=== PATIENT | female | born 1995 | race Caucasian/White ===

== ENCOUNTER 2017-01-01 15:50 | Emergency (ER) | payer BC, OTHER ==
[~2017-01-01] VITALS: Ht 162.6 cm; Wt 113.4 kg
[2017-01-01] MEDS ORDERED: OXYC1TAB23 PO (16:23)
[2017-01-01] MEDS ORDERED: VELIPAK2 PO (16:23)
[2017-01-01] MEDS ORDERED: FLOM5CAP PO ×3 (16:23→19:43)
[2017-01-01] MEDS ORDERED: ONDANSETRON 4MG/2ML VIAL (J2405) IV ONE (17:00)
[2017-01-01] MEDS ORDERED: KETOROLAC 30 MG/ML VIAL (J1885) IV ONE (17:00)
[2017-01-01 17:33] LABS: BASO % 0.2 % (0.0-1.0); EOS # 0.1 K/mm3 (0.0-0.50); EOS % 1.2 % (0.0-3.0); LARGE UNSTAINED CELL # 0.1 K/mm3 (0.0-0.4); LARGE UNSTAINED CELL % 1.3 % (0.0-4.0); LYMPH # 1.7 K/mm3 (1.5-6.5); LYMPH % 15.9 % (24.0-44.0); MEAN CORPUSCULAR HEMOGLOBIN 27.1 pg (27.0-33.0); MEAN CORPUSCULAR HGB CONC 33.4 g/dl (32.0-36.5); MONO # 0.5 K/mm3 (0.0-0.8); MONO % 5.1 % (0.0-5.0); NEUTROPHILS # 7.9 K/mm3 (1.8-7.7); NEUTROPHILS % 76.3 % (36.0-66.0); PLATELET COUNT, AUTOMATED 311 k/mm3 (150-450); RED CELL DISTRIBUTION WIDTH 13.5 % (11.5-14.5); WHITE BLOOD COUNT 10.4 K/mm3 (4.0-10.0)
[2017-01-01 17:47] LABS: CONTROL LINE HCG INT CTR LINE PRESENT
[2017-01-01 17:49] LABS: ANION GAP 7 MEQ/L (8-16); BLOOD UREA NITROGEN 11 MG/DL (7-18); CALCIUM LEVEL 8.7 MG/DL (8.5-10.1); CARBON DIOXIDE LEVEL 25 MEQ/L (21-32); CHLORIDE LEVEL 107 MEQ/L (98-107); CREATININE FOR GFR 0.78 MG/DL (0.55-1.02); GLOMERULAR FILTRATION RATE > 60.0 (>60); GLUCOSE, FASTING 110 MG/DL (70-105); POTASSIUM SERUM 3.5 MEQ/L (3.5-5.1); SODIUM LEVEL 139 MEQ/L (136-145)
[2017-01-01 18:51] VITALS: BP 181/90
--- NOTE | 2017-01-01 19:20 | REPUSA ---
CLINICAL HISTORY: Hematuria. Left flank pain. TECHNIQUE: Multiple axial CT images were obtained through the abdomen and pelvis without administrat ion of oral or IV contrast material. FINDINGS: Correlation is made with the prior study dated 03/24/2016. The liver is enlarged measuring 19 cm. No evidence of hepatic mass. There is hepatic hypoattenuation compatible with fatty infiltration. Small hiatal hernia is seen. There is no intra or extrahepatic bi liary ductal dilatation. The spleen is normal. The gallbladder is within normal limits. The pancre as is of normal contour and attenuation characteristics. There is no evidence of adrenal mass. The kidneys are normal in size, shape and configuration. There is a punctate calculus noted in the rivera perior pole of the left kidney. There is a 3.5 mm calculus noted in the proximal left ureter producin g mild hydroureter and hydronephrosis. There is no evidence for appendicitis. There is no bowel wall thickening. No evidence for small or large bowel obstruction. There is no evidence of abdominal ascites or lymphadenopathy. There is no evidence of intrinsic or extrinsic bladder mass. There is no pelvic ascites or lymphaden opathy. Uterus and ovaries are unremarkable. Images of the lung bases show no evidence of pleural or parenchymal mass. There are no pleural effus ions. The bony structures are free of lytic or blastic lesions. IMPRESSION: 1. Fatty liver. 2. A 3.5 mm calculus in the proximal left ureter producing mild hydroureter and hydronephrosis. 3. Punctate nonobstructing left renal calculus. Thank you for your kind referral of this patient. We appreciate the opportunity to participate in thi s patient's care.
[2017-01-01] MEDS ORDERED: NAPR500T PO ×2 (19:33→19:43)
[2017-01-01] MEDS ORDERED: NORCOTAB PO ×2 (19:33→19:43)
[2017-01-01] MEDS ORDERED: ZOFR4TAB3 PO ×2 (19:33→19:43)
== END 2017-01-01 19:51 | disposition home or self-care (01) ==
LOC: M ED 17:32
DX: N13.2 Hydronephrosis with renal and ureteral calculous obstruction (principal)
CPT/HCPCS: 74176; 80048; 84703; 85025; 86140; 96374; 96375; 99284; J1885; J2405

== ENCOUNTER → 2017-01-01 | Outpatient (REF) | payer BC, OTHER ==
[~2017-01-01] MED LIST: FLOM5CAP PO; NAPR500T PO; NORCOTAB PO; OXYC1TAB23 PO; VELIPAK2 PO; ZOFR4TAB3 PO
[2017-01-01 17:29] LABS: CONTROL LINE UCG INT CTR LINE PRESENT
== END ==
LOC: M SMT 16:57
PROVIDERS: ATTEND Urology
DX: R10.9 Unspecified abdominal pain (principal)

== ENCOUNTER → 2017-01-28 | Outpatient (REF) | payer OTHER ==
[~2017-01-28] MED LIST changes: +IBUP80TA PO
== END ==
LOC: M SMT 17:14
PROVIDERS: ATTEND Urology
DX: N20.0 Calculus of kidney (principal)

== ENCOUNTER → 2017-02-09 | Outpatient (CLI) | payer OTHER ==
--- NOTE | 2017-02-09 21:46 | REP ---
Clinical: Nephrolithiasis. Comparison: CT dated 01/01/2017. Technique: Single supine view of the abdomen and pelvis. Findings: Single supine view of the abdomen and pelvis demonstrates nonspecific bowel gas pattern. Evaluation of the urinary tract system for calcifications is limited although small 1 mm left renal calculus cannot be excluded. Calcifications in the right karen pelvis likely phleboliths. Skeletal structures are intact. Impression: Limited evaluation for urinary tract calcifications. Possible 1 mm nonobstructing left renal calculus. Signed by Reed Mazariegos MD 02/09/2017 09:37 P
== END ==
LOC: M RAD 15:54
PROVIDERS: ATTEND Urology
DX: N20.0 Calculus of kidney (principal)

== ENCOUNTER → 2017-02-16 | Outpatient (REF) | payer OTHER ==
[2017-02-16 14:02] LABS: CALCIUM OXALATE CRYSTALS SMALL
== END ==
LOC: M SMT 12:57
PROVIDERS: ATTEND Urology
DX: N20.0 Calculus of kidney (principal)

== ENCOUNTER 2017-05-04 12:26 | Emergency (ER) | payer OTHER ==
[~2017-05-04] VITALS: Ht 160 cm; Wt 118.2 kg
[~2017-05-04 12:26] MED LIST changes: -IBUP80TA PO
[2017-05-04] MEDS ORDERED: IBUP80TA PO (13:58)
[2017-05-04] MEDS ORDERED: IBUPROFEN 800 MG TAB As Ordered ONE (13:59)
[2017-05-04] MEDS ORDERED: IBUPROFEN 800 MG TAB PO ONE (14:00)
[2017-05-04 14:04] VITALS: BP 159/95
== END 2017-05-04 14:07 | disposition home or self-care (01) ==
LOC: M ED 12:26
DX: M79.5 Residual foreign body in soft tissue (principal)

== ENCOUNTER 2018-02-05 21:09 | Emergency (ER) | payer OTHER ==
[2018-02-05 23:56] LABS: CONTROL LINE HCG INT CTR LINE PRESENT; HCG, SERUM QUALITATIVE NEGATIVE (NEGATIVE)
[2018-02-06 00:09] LABS: ALBUMIN 3.7 GM/DL (3.2-5.2); ALBUMIN/GLOBULIN RATIO 0.97 (1.00-1.93); ALKALINE PHOSPHATASE 70 U/L (45-117); ALT/SGPT 34 U/L (12-78); ANION GAP 9 MEQ/L (8-16); AST/SGOT 15 U/L (7-37); BILIRUBIN,TOTAL 0.2 MG/DL (0.2-1.0); BLOOD UREA NITROGEN 11 MG/DL (7-18); CALCIUM LEVEL 9.2 MG/DL (8.5-10.1); CARBON DIOXIDE LEVEL 25 MEQ/L (21-32); CHLORIDE LEVEL 109 MEQ/L (98-107); CREATININE FOR GFR 0.73 MG/DL (0.55-1.30); GLOMERULAR FILTRATION RATE > 60.0 (>60); GLUCOSE, FASTING 82 MG/DL (70-100); POTASSIUM SERUM 4.3 MEQ/L (3.5-5.1); SODIUM LEVEL 143 MEQ/L (136-145); TOTAL PROTEIN 7.5 GM/DL (6.4-8.2)
[2018-02-06 00:15] LABS: BASO % 0.3 % (0.0-1.0); EOS # 0.1 10^3/uL (0.0-0.50); HEMATOCRIT 43.4 % (36.0-47.0); HEMOGLOBIN 14.2 g/dl (12.0-15.5); HIVEXPOSED0 NEGATIVE (NEGATIVE); IMMATURE GRANULOCYTE % 0.9 % (0-3.0); LYMPH % 15.4 % (24.0-44.0); MEAN CORPUSCULAR HEMOGLOBIN 26.7 pg (27.0-33.0); MEAN CORPUSCULAR HGB CONC 32.7 g/dl (32.0-36.5); MEAN CORPUSCULAR VOLUME 81.6 fl (80.0-96.0); MONO % 7.6 % (0.0-5.0); NEUTROPHILS # 9.6 10^3/uL (1.8-7.7); NEUTROPHILS % 74.8 % (36.0-66.0); PLATELET COUNT, AUTOMATED 359 10^3/uL (150-450); RED BLOOD COUNT 5.32 10^6/uL (4.00-5.40); WHITE BLOOD COUNT 12.8 10^3/uL (4.0-10.0)
[2018-02-06 00:17] LABS: CONTROL LINE INT CTR LINE PRESENT; HIV EXPOSED PT 1 NEGATIVE (NEGATIVE)
[2018-02-07 10:35] LABS: HEPATITIS B SURFACE ANTIBODY POSITIVE (POSITIVE)
[2018-02-07 10:43] LABS: HEPATITIS B SURFACE ANTIGEN NEGATIVE (NEGATIVE)
[2018-02-07 11:12] LABS: HEPATITIS C VIRUS ABY INDEX 0.1 INDEX (<0.8)
== END 2018-02-05 23:45 | disposition home or self-care (01) ==
LOC: M ED 21:09
DX: Z77.21 Contact with and (suspected) exposure to potentially hazardous body fluids (principal); Z88.8 Allergy status to other drugs, medicaments and biological substances
CPT/HCPCS: 80053

== ENCOUNTER → 2018-11-15 | Outpatient (CLI) | payer OTHER ==
[~2018-11-15] MED LIST changes: +FLOM0.4C39 PO; -FLOM5CAP PO; +HYDR-3715 PO; +IBUP80TA PO; +NAPR-837 PO; -NAPR500T PO; -NORCOTAB PO; +ZOFR4TAB14 PO; -ZOFR4TAB3 PO
[2018-11-15 14:03] LABS: BLOOD UREA NITROGEN 9 MG/DL (7-18); CARBON DIOXIDE LEVEL 25 MEQ/L (21-32); CHLORIDE LEVEL 107 MEQ/L (98-107); CREATININE FOR GFR 0.63 MG/DL (0.55-1.30); GLOMERULAR FILTRATION RATE > 60.0 (>60); GLUCOSE, FASTING 115 MG/DL (70-100); POTASSIUM SERUM 4.4 MEQ/L (3.5-5.1); SODIUM LEVEL 139 MEQ/L (136-145)
[2018-11-15 14:19] LABS: HEMOGLOBIN A1c 6.9 %
== END ==
LOC: M SMT 11:00
PROVIDERS: ATTEND Family Medicine
DX: I10 Essential (primary) hypertension (principal); Z83.3 Family history of diabetes mellitus

== ENCOUNTER → 2018-12-15 | Outpatient (CLI) | payer BC ==
--- NOTE | 2018-12-16 15:59 | REP ---
Clinical: thoracic pain. Technique: AP, lateral, and swimmers views. Findings: Alignment and kyphosis is maintained. Vertebral bodies intact. No acute fracture / compression injury or subluxation. Endplate sclerosis with marginal spurring and disc space narrowing at T11-12 should be correlated clinically. No further degenerative changes are appreciated. Impression: Focal degenerative changes at T11-12 cannot be excluded and should be correlated clinically. Electronically Signed by Reed Mazariegos MD 12/16/2018 03:50 P
== END ==
LOC: M ADAMS 10:00
PROVIDERS: ATTEND Physician Assistant
DX: M54.6 Pain in thoracic spine (principal)

== ENCOUNTER → 2019-06-23 | Outpatient (CLI) | payer OTHER ==
--- NOTE | 2019-06-23 12:20 | REP ---
Chest x-ray: Two views. History: Otitis . Comparison study: November 29, 2005 . Findings: The lungs are well inflated and free of infiltrate. The pleural angles are sharp. The heart size is normal. Pulmonary vasculature is not increased. No significant bony abnormality is seen. Impression: Negative chest x-ray. Electronically Signed by Brandon Aguilar MD 06/23/2019 12:12 P
[2019-06-23 13:23] LABS: BASO # 0.1 10^3/uL (0.0-0.2); BASO % 0.4 % (0.0-1.0); EOS # 0.3 10^3/uL (0.0-0.5); EOS % 2.1 % (0.0-3.0); HEMATOCRIT 43.2 % (36.0-47.0); HEMOGLOBIN 13.6 g/dl (12.0-15.5); LYMPH # 2.1 10^3/uL (1.5-5.0); LYMPH % 17.1 % (24.0-44.0); MEAN CORPUSCULAR HGB CONC 31.5 g/dl (32.0-36.5); MEAN CORPUSCULAR VOLUME 82.4 fl (80.0-96.0); MONO # 0.8 10^3/uL (0.0-0.8); MONO % 6.8 % (0.0-5.0); NEUTROPHILS # 8.9 10^3/uL (1.5-8.5); NEUTROPHILS % 72.8 % (36.0-66.0); PLATELET COUNT, AUTOMATED 395 10^3/uL (150-450); RED BLOOD COUNT 5.24 10^6/uL (4.00-5.40); WHITE BLOOD COUNT 12.3 10^3/uL (4.0-10.0)
== END ==
LOC: M ADAMS 10:05
PROVIDERS: ATTEND Physician Assistant Medical
DX: J20.9 Acute bronchitis, unspecified (principal)

== ENCOUNTER → 2019-09-25 | Outpatient (REF) | payer OTHER ==
[2019-09-25 11:41] LABS: APPEARANCE, URINE MANUAL HAZY (CLEAR); COLOR, URINE MANUAL ORANGE (YELLOW)
[2019-09-25 11:43] LABS: BILIRUBIN, URINE MANUAL OBSCURED (NEGATIVE); BLOOD URINE MANUAL OBSCURED (NEGATIVE); GLUCOSE, URINE (UA) MANUAL NEGATIVE (NEGATIVE); KETONE, URINE MANUAL OBSCURED mg/dL (NEGATIVE); LEUKOCYTE ESTERASE, URINE MAN OBSCURED (NEGATIVE); NITRITE, URINE MANUAL OBSCURED (NEGATIVE); PROTEIN, URINE MANUAL OBSCURED mg/dL (NEGATIVE); UROBILINOGEN, URINE MANUAL OBSCURED mg/dl (NORMAL)
[2019-09-25 11:52] LABS: WBC, URINE 30-40 /hpf (0-3)
[2019-09-25 11:53] LABS: RENAL EPITHELIAL CELLS, URINE SMALL AMOUNT /hpf; SQUAMOUS EPITHELIAL CELL URINE MOD AMOUNT /hpf (SMALL AMT); TRANSITIONAL EPI CELLS, URINE SMALL AMOUNT /hpf
[2019-09-25 11:54] LABS: AMORPHOUS SEDIMENT, URINE SMALL AMOUNT (NEGATIVE); BACTERIA, URINE MOD AMOUNT; HYALINE CAST, URINE NONE SEEN /lpf (0-1); MUCUS, URINE SMALL AMOUNT (NEGATIVE)
== END ==
LOC: M LAB REF 11:04
PROVIDERS: ATTEND Physician Assistant Medical
DX: N39.9 Disorder of urinary system, unspecified (principal)

== ENCOUNTER → 2020-02-19 | Outpatient (CLI) | payer OTHER ==
[2020-02-19 12:49] LABS: HEMOGLOBIN A1c 6.3 %
[2020-02-19 12:54] LABS: ALBUMIN 3.6 GM/DL (3.2-5.2); ALT/SGPT 26 U/L (12-78); BILIRUBIN,TOTAL 0.4 MG/DL (0.2-1.0); BLOOD UREA NITROGEN 11 MG/DL (7-18); CALCIUM LEVEL 9.3 MG/DL (8.5-10.1); CARBON DIOXIDE LEVEL 24 MEQ/L (21-32); CHLORIDE LEVEL 104 MEQ/L (98-107); CHOLESTEROL LEVEL 201 MG/DL (<200); CHOLESTEROL RISK RATIO 3.941 (<5); GLOMERULAR FILTRATION RATE > 60.0 (>60); GLUCOSE, FASTING 109 MG/DL (70-100); HDL CHOLESTEROL 51 MG/DL (>40); LDL CHOLESTEROL 105 MG/DL (<100); NON-HDL-C 150 MG/DL; POTASSIUM SERUM 4.3 MEQ/L (3.5-5.1); SODIUM LEVEL 135 MEQ/L (136-145); TOTAL PROTEIN 7.5 GM/DL (6.4-8.2); TRIGLYCERIDES LEVEL 224 MG/DL (<150)
[2020-02-19 13:14] LABS: MALB URINE SIEMENS 14.8 MG/L; MAU/CREAT RATIO 11.1 MCG/MG (0.0-30.0)
== END ==
LOC: M PLALAB 09:23
PROVIDERS: ATTEND Physician Assistant Medical
DX: E11.9 Type 2 diabetes mellitus without complications (principal)

== ENCOUNTER → 2020-08-28 | Outpatient (CLI) | payer OTHER ==
--- NOTE | 2020-08-29 04:02 | REP ---
INDICATION: SHORTNESS OF BREATH COMPARISON: 06/23/2019 TECHNIQUE: PA and lateral. FINDINGS: The mediastinum and cardiac silhouette are normal. The lung spencer are clear and without acute consolidation, effusion, or pneumothorax. The skeletal structures are intact and normal. IMPRESSION: No acute cardiopulmonary process. <Electronically signed by Reed Mazariegos > 08/29/20 [id number]
== END ==
LOC: M RAD 12:58
PROVIDERS: ATTEND Physician Assistant Medical
DX: R06.02 Shortness of breath (principal)

== ENCOUNTER → 2021-01-01 | Outpatient (REF) | LOC: M LABSMTC 12:44 | PROVIDERS: ATTEND Pediatrics | DX: Z20.822 Contact with and (suspected) exposure to COVID-19 (principal) ==

== ENCOUNTER → 2021-08-09 | Outpatient (CLI) | payer BC ==
[2021-08-12 16:12] LABS: Lyme Disease IgG/IgM Antibodie <0.91 ISR (0.00-0.90); Lyme Disease IgM Ab Quantitati <0.80 index (0.00-0.79)
== END ==
LOC: M LAB 11:48
PROVIDERS: ATTEND Physician Assistant
DX: M25.50 Pain in unspecified joint (principal); R00.0 Tachycardia, unspecified; R79.82 Elevated C-reactive protein (CRP); R70.0 Elevated erythrocyte sedimentation rate; R53.1 Weakness

== ENCOUNTER → 2021-10-15 | Outpatient (REF) | LOC: M EMP 09:27 | PROVIDERS: ATTEND Family Medicine | DX: Z11.52 Encounter for screening for COVID-19 (principal) ==

== ENCOUNTER 2021-10-24 14:25 | Emergency (ER) | payer BC ==
[~2021-10-24] VITALS: Ht 162.6 cm; Wt 136.4 kg
[2021-10-24] MEDS ORDERED: LISI20TA33 PO (14:45)
[2021-10-24] MEDS ORDERED: ALBU8.5H INH (14:45)
[2021-10-24] MEDS ORDERED: METF500T13 PO (14:45)
[2021-10-24] MEDS ORDERED: AMOX875T2 PO (14:45)
[2021-10-24] MEDS ORDERED: ALBUTEROL SULFATE 2.5 MG/0.5 ML INH NEB SOLN INH ONE (15:15)
[2021-10-24] MEDS ORDERED: IPRATROPIUM 0.5MG/ALBUTEROL 2.5MG INH SOL UD 3ML (DUONEB) NEB ONE (15:15)
[2021-10-24 15:38] LABS: BASO # 0.1 10^3/uL (0.0-0.2); BASO % 0.5 % (0.0-1.0); EOS # 0.1 10^3/uL (0.0-0.5); EOS % 0.7 % (0.0-3.0); HEMATOCRIT 44.5 % (36.0-47.0); HEMOGLOBIN 14.4 g/dl (12.0-15.5); LYMPH # 3.9 10^3/uL (1.5-5.0); LYMPH % 20.3 % (24.0-44.0); MEAN CORPUSCULAR HEMOGLOBIN 26.1 pg (27.0-33.0); MEAN CORPUSCULAR HGB CONC 32.4 g/dl (32.0-36.5); MEAN CORPUSCULAR VOLUME 80.8 fl (80.0-96.0); MONO # 1.1 10^3/uL (0.0-0.8); MONO % 5.7 % (2.0-8.0); NEUTROPHILS # 13.4 10^3/uL (1.5-8.5); PLATELET COUNT, AUTOMATED 390 10^3/uL (150-450); RED BLOOD COUNT 5.51 10^6/uL (4.00-5.40); WHITE BLOOD COUNT 19.1 10^3/uL (4.0-10.0)
[2021-10-24] MEDS ORDERED: NS 500 ML IV ONE ×2 (15:55→16:45)
[2021-10-24 16:12] LABS: ALBUMIN 3.3 GM/DL (3.2-5.2); ALT/SGPT 31 U/L (12-78); BILIRUBIN,DIRECT < 0.1 MG/DL (0.0-0.2); BILIRUBIN,TOTAL 0.2 MG/DL (0.2-1.0); NT-PRO BNP 22 PG/ML (<125); THYROXINE (T4) 16.8 UG/DL (4.5-12.0); TOTAL PROTEIN 7.1 GM/DL (6.4-8.2)
[2021-10-24] MEDS ORDERED: ISOVUE-370 76% 100ML VIAL As Ordered ONE (16:48)
[2021-10-24] MEDS ORDERED: PRED20TA PO (18:29)
[2021-10-24 18:30] VITALS: BP 135/72
== END 2021-10-24 18:43 | disposition home or self-care (01) ==
LOC: M ED 14:25
DX: J45.909 Unspecified asthma, uncomplicated (principal); B34.8 Other viral infections of unspecified site; R94.6 Abnormal results of thyroid function studies; E11.9 Type 2 diabetes mellitus without complications; I10 Essential (primary) hypertension; Z88.8 Allergy status to other drugs, medicaments and biological substances; Z79.899 Other long term (current) drug therapy; Z79.84 Long term (current) use of oral hypoglycemic drugs; Z79.3 Long term (current) use of hormonal contraceptives
CPT/HCPCS: 71045; 71275; 80047; 80076; 83605; 83880; 84436; 84443; 84484; 84702; 85025; 87040; 87798; 93005; 94640; 94760; 96360; 96361; 99284; Q9967

== ENCOUNTER 2022-05-25 07:22 | Emergency (ER) | payer BC ==
[~2022-05-25] VITALS: Ht 160 cm; Wt 136.9 kg
[~2022-05-25 07:22] MED LIST changes: +ALBU8.5H INH; +AMOX875T2 PO; +LISI20TA33 PO; +METF500T13 PO; +PRED20TA PO
[2022-05-25] MEDS ORDERED: NS 1,000 ML IV ONE ×2 (10:25→12:55)
[2022-05-25] MEDS ORDERED: ONDANSETRON 4MG 2ML VIAL IV ONE (10:25)
[2022-05-25] MEDS ORDERED: KETOROLAC 30 MG/ML 1ML VIAL IV ONE (10:25)
[2022-05-25 10:56] LABS: BASO % 0.3 % (0.0-1.0); EOS % 0.2 % (0.0-3.0); HEMATOCRIT 42.6 % (36.0-47.0); HEMOGLOBIN 13.7 g/dl (12.0-15.5); LYMPH # 1.1 10^3/uL (1.5-5.0); LYMPH % 8.2 % (24.0-44.0); MEAN CORPUSCULAR HEMOGLOBIN 26.6 pg (27.0-33.0); MEAN CORPUSCULAR HGB CONC 32.2 g/dl (32.0-36.5); MEAN CORPUSCULAR VOLUME 82.7 fl (80.0-96.0); MONO # 0.7 10^3/uL (0.0-0.8); MONO % 4.8 % (2.0-8.0); NEUTROPHILS # 11.8 10^3/uL (1.5-8.5); NEUTROPHILS % 85.6 % (36.0-66.0); PLATELET COUNT, AUTOMATED 310 10^3/uL (150-450); RED BLOOD COUNT 5.15 10^6/uL (4.00-5.40); WHITE BLOOD COUNT 13.7 10^3/uL (4.0-10.0)
[2022-05-25 11:28] LABS: RSV AMPLIFICATION NEGATIVE (NEGATIVE)
[2022-05-25 11:30] LABS: ALBUMIN 3.2 GM/DL (3.2-5.2); BILIRUBIN,DIRECT 0.2 MG/DL (0.0-0.2); BILIRUBIN,TOTAL 0.4 MG/DL (0.2-1.0); TOTAL PROTEIN 6.9 GM/DL (6.4-8.2)
[2022-05-25] MEDS ORDERED: CIPR-249 PO (14:40)
[2022-05-25 15:01] VITALS: BP 143/76
== END 2022-05-25 15:09 | disposition home or self-care (01) ==
LOC: M ED 07:22
DX: R10.9 Unspecified abdominal pain (principal); R11.2 Nausea with vomiting, unspecified; R19.7 Diarrhea, unspecified; E86.0 Dehydration; R50.9 Fever, unspecified; R51.9 Headache, unspecified; E11.9 Type 2 diabetes mellitus without complications; I10 Essential (primary) hypertension; Z87.442 Personal history of urinary calculi; L85.8 Other specified epidermal thickening; Z88.8 Allergy status to other drugs, medicaments and biological substances; Z79.51 Long term (current) use of inhaled steroids; Z79.84 Long term (current) use of oral hypoglycemic drugs; Z79.899 Other long term (current) drug therapy
CPT/HCPCS: 80047; 80076; 83605; 83690; 84702; 85025; 87507; 87631; 96361; 96374; 96375; 99284; J1885; J2405

== ENCOUNTER 2022-06-26 13:15 | Emergency (ER) | payer BC ==
[~2022-06-26] VITALS: Ht 162.6 cm; Wt 136.4 kg
[~2022-06-26 13:15] MED LIST changes: +CIPR-249 PO
[2022-06-26] MEDS ORDERED: NS 1,000 ML IV ONE (13:35)
[2022-06-26 14:16] LABS: BASO # 0.1 10^3/uL (0.0-0.2); BASO % 0.5 % (0.0-1.0); EOS # 0.1 10^3/uL (0.0-0.5); EOS % 0.8 % (0.0-3.0); HEMATOCRIT 36.3 % (36.0-47.0); HEMOGLOBIN 11.8 g/dl (12.0-15.5); LYMPH # 1.2 10^3/uL (1.5-5.0); LYMPH % 9.2 % (24.0-44.0); MEAN CORPUSCULAR HEMOGLOBIN 26.1 pg (27.0-33.0); MEAN CORPUSCULAR HGB CONC 32.5 g/dl (32.0-36.5); MEAN CORPUSCULAR VOLUME 80.3 fl (80.0-96.0); MONO # 0.9 10^3/uL (0.0-0.8); MONO % 6.5 % (2.0-8.0); NEUTROPHILS # 10.7 10^3/uL (1.5-8.5); NEUTROPHILS % 80.7 % (36.0-66.0); PLATELET COUNT, AUTOMATED 407 10^3/uL (150-450); RED BLOOD COUNT 4.52 10^6/uL (4.00-5.40); WHITE BLOOD COUNT 13.3 10^3/uL (4.0-10.0)
[2022-06-26 15:01] LABS: BLOOD UREA NITROGEN 8 MG/DL (9-23); CALCIUM LEVEL 8.5 MG/DL (8.5-10.1); CARBON DIOXIDE LEVEL 22 MMOL/L (20-31); CHLORIDE LEVEL 106 MMOL/L (98-107); CREATININE FOR GFR 0.58 MG/DL (0.55-1.30); GLOMERULAR FILTRATION RATE > 60.0 (>60); GLUCOSE, FASTING 191 MG/DL (60-100); HCG, SERUM QUANTITATIVE 2.59999 MIU/ML (<4.2); POTASSIUM SERUM 3.7 MMOL/L (3.5-5.1); SODIUM LEVEL 138 MMOL/L (136-145)
[2022-06-26] MEDS ORDERED: ONDANSETRON 4MG 2ML VIAL IV ONE (15:05)
[2022-06-26] MEDS ORDERED: KETOROLAC 30 MG/ML 1ML VIAL IV ONE (15:05)
[2022-06-26] MEDS ORDERED: cefTRIAXone SOD 1 GM in D5W MINI-BAG PLUS 50 ML IV ONE (15:10)
[2022-06-26 16:26] LABS: RSV AMPLIFICATION NEGATIVE (NEGATIVE)
[2022-06-26] MEDS ORDERED: KETO10TAB PO (16:51)
[2022-06-26] MEDS ORDERED: CIPR-249 PO (16:51)
[2022-06-26] MEDS ORDERED: ONDA4TAB6 PO (16:53)
[2022-06-26] MEDS ORDERED: CIPROFLOXACIN 500MG TABLET PO ONE (16:55)
[2022-06-26 16:59] VITALS: BP 134/83
== END 2022-06-26 17:47 | disposition home or self-care (01) ==
LOC: M ED 13:15
DX: N10 Acute pyelonephritis (principal); R50.9 Fever, unspecified; R00.0 Tachycardia, unspecified; N20.0 Calculus of kidney; I10 Essential (primary) hypertension; Z87.442 Personal history of urinary calculi; Z79.84 Long term (current) use of oral hypoglycemic drugs; Z79.899 Other long term (current) drug therapy
CPT/HCPCS: 74176; 76775; 80048; 81000; 84702; 85025; 87040; 87088; 87186; 87631; 96361; 96365; 96366; 96375; 99284; J0696; J1885; J2405

== ENCOUNTER 2022-06-30 09:27 | Inpatient (IN) | payer BC ==
[~2022-06-30] VITALS: Ht 162.6 cm; Wt 139.6 kg
[~2022-06-30 09:27] MED LIST changes: +KETO10TAB PO; +ONDA4TAB6 PO
[2022-06-30] MEDS ORDERED: ACET-683 PO (09:46)
[2022-06-30 11:24] LABS: HEMATOCRIT 40.1 % (36.0-47.0); HEMOGLOBIN 12.6 g/dl (12.0-15.5); MEAN CORPUSCULAR HEMOGLOBIN 25.6 pg (27.0-33.0); MEAN CORPUSCULAR VOLUME 81.3 fl (80.0-96.0); RED BLOOD COUNT 4.93 10^6/uL (4.00-5.40); WHITE BLOOD COUNT 13.9 10^3/uL (4.0-10.0)
[2022-06-30 11:25] LABS: BASO # 0.1 10^3/uL (0.0-0.2); BASO % 0.6 % (0.0-1.0); EOS # 0.2 10^3/uL (0.0-0.5); EOS % 1.7 % (0.0-3.0); LYMPH # 1.9 10^3/uL (1.5-5.0); LYMPH % 13.6 % (24.0-44.0); MEAN CORPUSCULAR HGB CONC 31.4 g/dl (32.0-36.5); MONO # 0.6 10^3/uL (0.0-0.8); MONO % 4.1 % (2.0-8.0); NEUTROPHILS # 9.8 10^3/uL (1.5-8.5); NEUTROPHILS % 70.2 % (36.0-66.0); PLATELET COUNT, AUTOMATED 462 10^3/uL (150-450)
[2022-06-30 11:42] LABS: CHLORIDE LEVEL 105 MMOL/L (98-107); SODIUM LEVEL 140 MMOL/L (136-145)
[2022-06-30 11:43] LABS: CARBON DIOXIDE LEVEL 24 MMOL/L (20-31)
[2022-06-30 11:48] LABS: BLOOD UREA NITROGEN 10 MG/DL (9-23); CALCIUM LEVEL 8.8 MG/DL (8.5-10.1); GLUCOSE, FASTING 161 MG/DL (60-100)
[2022-06-30 11:50] LABS: CREATININE FOR GFR 0.53 MG/DL (0.55-1.30); GLOMERULAR FILTRATION RATE > 60.0 (>60)
[2022-06-30] MEDS ORDERED: NS 1,000 ML IV ONE (15:10)
[2022-06-30] MEDS ORDERED: cefTRIAXone SOD 1 GM in D5W MINI-BAG PLUS 50 ML IV ONE (15:15)
[2022-06-30] MEDS ORDERED: KETOROLAC 30 MG/ML 1ML VIAL IV ONE (15:15)
[2022-06-30] MEDS ORDERED: ACETAMINOPHEN 500 MG TAB PO ONE (15:15)
[2022-06-30] MEDS ORDERED: ISOVUE-370 76% 100ML VIAL As Ordered ONE (15:30)
[2022-06-30] MEDS ORDERED: PROMETHAZINE 25MG/ML 1ML VIAL IV ONE (15:40)
[2022-06-30] MEDS ORDERED: ONDA4TAB6 PO (16:28)
[2022-06-30] MEDS ORDERED: MULT-40 PO (16:28)
[2022-06-30] MEDS ORDERED: PROBCAP14 PO (16:28)
[2022-06-30] MEDS ORDERED: CIPR-249 PO (16:28)
[2022-06-30] MEDS ORDERED: KETO10TAB PO (16:28)
[2022-06-30] MEDS ORDERED: HOME MED LIST COMPLETE! XX SCH (16:30)
[2022-06-30] MEDS ORDERED: DEXTROSE 50% 50 ML SYRINGE IV PRN (17:10)
[2022-06-30] MEDS ORDERED: GLUCAGON INJ 1MG VIAL SC PRN (17:10)
[2022-06-30] MEDS ORDERED: MORPHINE 2 MG/ML 1ML VIAL IV PRN (17:10)
[2022-06-30] MEDS ORDERED: GLUCOSE 4GM CHEW TABLET PO PRN (17:10)
[2022-06-30] MEDS: INSULIN LISPRO (NovoLOG) PER UNIT SC SCH ×2 (17:30→21:00)
[2022-06-30 21:22] VITALS: BP 168/96
[2022-06-30] MEDS: LACTOBACILLUS ACIDOPHILUS CAP (BACID) PO SCH (22:04)
[2022-06-30] MEDS: ACETAMINOPHEN TAB 650MG DOSE (2X325MG) PO SCH (22:06)
[2022-07-01] VITALS (8 sets, daily range): BP systolic 120–148; BP diastolic 70–88
[2022-07-01] MEDS: KETOROLAC 30 MG/ML 1ML VIAL IV PRN ×2 (02:36→10:34)
[2022-07-01] MEDS: HEPARIN SOD (PORCINE) 5000UNITS/ML 1ML VIAL/SYRINGE SQ SCH ×3 (06:00→20:58)
[2022-07-01 07:29] LABS: HEMATOCRIT 35.3 % (36.0-47.0); HEMOGLOBIN 10.9 g/dl (12.0-15.5); MEAN CORPUSCULAR HEMOGLOBIN 25.8 pg (27.0-33.0); MEAN CORPUSCULAR HGB CONC 30.9 g/dl (32.0-36.5); MEAN CORPUSCULAR VOLUME 83.6 fl (80.0-96.0); PLATELET COUNT, AUTOMATED 446 10^3/uL (150-450); RED BLOOD COUNT 4.22 10^6/uL (4.00-5.40); WHITE BLOOD COUNT 11.6 10^3/uL (4.0-10.0)
[2022-07-01 08:12] LABS: CHLORIDE LEVEL 106 MMOL/L (98-107); SODIUM LEVEL 141 MMOL/L (136-145)
[2022-07-01 08:13] LABS: CARBON DIOXIDE LEVEL 26 MMOL/L (20-31)
[2022-07-01 08:18] LABS: BLOOD UREA NITROGEN 11 MG/DL (9-23); CALCIUM LEVEL 8.7 MG/DL (8.5-10.1); GLUCOSE, FASTING 200 MG/DL (60-100); MAGNESIUM LEVEL 1.7 MG/DL (1.8-2.4)
[2022-07-01 08:20] LABS: CREATININE FOR GFR 0.54 MG/DL (0.55-1.30); GLOMERULAR FILTRATION RATE > 60.0 (>60); PHOSPHORUS LEVEL 4.1 MG/DL (2.5-4.9)
[2022-07-01] MEDS: INSULIN LISPRO (NovoLOG) PER UNIT SC SCH ×4 (09:25→20:58)
[2022-07-01] MEDS: cefTRIAXone SOD 1 GM in D5W MINI-BAG PLUS 50 ML IV SCH (09:29)
[2022-07-01] MEDS: ACETAMINOPHEN TAB 650MG DOSE (2X325MG) PO SCH ×3 (09:29→21:04)
[2022-07-01] MEDS: MAG SULF 1GM/100ML (MAG RUN) 1 GM in IV 1 EA IV SCH ×2 (17:25→18:53)
[2022-07-01] MEDS: LACTOBACILLUS ACIDOPHILUS CAP (BACID) PO SCH (21:02)
[2022-07-02 02:00] VITALS: BP 138/70
[2022-07-02] MEDS: HEPARIN SOD (PORCINE) 5000UNITS/ML 1ML VIAL/SYRINGE SQ SCH ×2 (05:01→13:12)
[2022-07-02 06:00] VITALS: BP 128/64
[2022-07-02 06:24] LABS: HEMATOCRIT 35.4 % (36.0-47.0); HEMOGLOBIN 11.3 g/dl (12.0-15.5); MEAN CORPUSCULAR HEMOGLOBIN 26.1 pg (27.0-33.0); MEAN CORPUSCULAR HGB CONC 31.9 g/dl (32.0-36.5); MEAN CORPUSCULAR VOLUME 81.8 fl (80.0-96.0); PLATELET COUNT, AUTOMATED 414 10^3/uL (150-450); RED BLOOD COUNT 4.33 10^6/uL (4.00-5.40); WHITE BLOOD COUNT 11.3 10^3/uL (4.0-10.0)
[2022-07-02 06:44] LABS: MAGNESIUM LEVEL 1.7 MG/DL (1.8-2.4)
[2022-07-02 06:45] LABS: BLOOD UREA NITROGEN 9 MG/DL (9-23); CALCIUM LEVEL 8.5 MG/DL (8.5-10.1); CARBON DIOXIDE LEVEL 26 MMOL/L (20-31); CHLORIDE LEVEL 107 MMOL/L (98-107); CREATININE FOR GFR 0.56 MG/DL (0.55-1.30); GLOMERULAR FILTRATION RATE > 60.0 (>60); GLUCOSE, FASTING 158 MG/DL (60-100); PHOSPHORUS LEVEL 4.4 MG/DL (2.5-4.9); POTASSIUM SERUM 4.1 MMOL/L (3.5-5.1); SODIUM LEVEL 143 MMOL/L (136-145)
[2022-07-02] MEDS: INSULIN LISPRO (NovoLOG) PER UNIT SC SCH ×2 (07:30→12:00)
[2022-07-02] MEDS ORDERED: ISOVUE-370 76% 100ML VIAL As Ordered ONE (07:46)
[2022-07-02 08:30] VITALS: BP 142/80
[2022-07-02] MEDS ORDERED: MAGNESIUM OXIDE 400MG TAB (MAG-OX) PO SCH (09:00)
[2022-07-02] MEDS: ACETAMINOPHEN TAB 650MG DOSE (2X325MG) PO SCH (09:06)
[2022-07-02] MEDS: cefTRIAXone SOD 1 GM in D5W MINI-BAG PLUS 50 ML IV SCH (09:51)
[2022-07-02 10:00] VITALS: BP 140/80
[2022-07-02] MEDS ORDERED: MAGN400T2 PO (12:09)
[2022-07-02] MEDS ORDERED: BACT800T5 PO (12:09)
[2022-07-02 13:00] VITALS: BP 148/90
== END 2022-07-02 13:53 | disposition home or self-care (01) | DRG 463 ==
LOC: M ED 09:27 → M ED INP 16:51 → ENRESERV 19:59 → M MSPAV 21:21
PROVIDERS: ADMIT Internal Medicine; ATTEND Internal Medicine
DX: N10 Acute pyelonephritis (principal); I10 Essential (primary) hypertension; E11.9 Type 2 diabetes mellitus without complications; N20.0 Calculus of kidney; E83.42 Hypomagnesemia; R00.0 Tachycardia, unspecified; Z79.84 Long term (current) use of oral hypoglycemic drugs; Z79.899 Other long term (current) drug therapy; Z88.8 Allergy status to other drugs, medicaments and biological substances

== ENCOUNTER → 2022-07-22 | Outpatient (CLI) | payer BC ==
[~2022-07-22] MED LIST changes: +ACET-683 PO; +BACT800T5 PO; +MAGN400T2 PO; +MULT-40 PO; +PROBCAP14 PO
[2022-07-22 11:28] LABS: HEMOGLOBIN 12.9 g/dl (12.0-15.5); MEAN CORPUSCULAR HGB CONC 31.5 g/dl (32.0-36.5); MEAN CORPUSCULAR VOLUME 82.5 fl (80.0-96.0); PLATELET COUNT, AUTOMATED 304 10^3/uL (150-450); RED BLOOD COUNT 4.97 10^6/uL (4.00-5.40); WHITE BLOOD COUNT 10.3 10^3/uL (4.0-10.0)
[2022-07-22 11:45] LABS: ERYTHROCYTE SEDIMENTATION RATE 41 mm/hr (0-20)
[2022-07-22 11:49] LABS: MAGNESIUM LEVEL 1.8 MG/DL (1.8-2.4)
[2022-07-22 11:51] LABS: RHEUMATOID FACTOR QUANT < 3.5 IU/ML (<14)
[2022-07-22 12:01] LABS: HEMOGLOBIN A1c 7.2 % (4.0-6.0)
[2022-07-22 12:10] LABS: ALBUMIN 3.6 G/DL (3.2-5.2); ALKALINE PHOSPHATASE 64 U/L (46-116); ALT/SGPT 51 U/L (7.0-40); AST/SGOT 52 U/L (<34); BILIRUBIN,TOTAL 0.4 MG/DL (0.3-1.2); BLOOD UREA NITROGEN 10 MG/DL (9-23); CALCIUM LEVEL 9.3 MG/DL (8.5-10.1); CARBON DIOXIDE LEVEL 24 MMOL/L (20-31); CHLORIDE LEVEL 103 MMOL/L (98-107); CHOLESTEROL LEVEL 193 MG/DL (<200); CHOLESTEROL RISK RATIO 4.32 (<5); FOLATE 15.7 NG/ML (>5.4); FREE T4 1.21 NG/DL (0.89-1.76); GLOMERULAR FILTRATION RATE > 60.0 (>60); GLUCOSE, FASTING 113 MG/DL (60-100); HDL CHOLESTEROL 44.6 MG/DL (>40); LDL CHOLESTEROL 103.2 MG/DL (<100); NON-HDL-C 148 MG/DL; POTASSIUM SERUM 4.6 MMOL/L (3.5-5.1); SODIUM LEVEL 136 MMOL/L (136-145); TOTAL 25(OH) VITAMIN D 32.9 NG/ML (20.0-100.0); TOTAL PROTEIN 6.8 G/DL (5.7-8.2); TRIGLYCERIDES LEVEL 226 MG/DL (<150); VITAMIN B12 LEVEL 463 PG/ML (211-911)
== END ==
LOC: M LAB 09:53
PROVIDERS: ATTEND Physician Assistant Medical
DX: E11.9 Type 2 diabetes mellitus without complications (principal); R53.83 Other fatigue; I10 Essential (primary) hypertension; M25.50 Pain in unspecified joint; R79.82 Elevated C-reactive protein (CRP); E83.42 Hypomagnesemia

== ENCOUNTER → 2022-07-22 | Outpatient (REF) | payer BC ==
[2022-07-22 19:52] LABS: APPEARANCE, URINE MANUAL CLEAR (CLEAR); COLOR, URINE MANUAL YELLOW (YELLOW); PH,URINE MAN 5.5 UNITS (5.0 - 7.0)
[2022-07-22 19:53] LABS: BILIRUBIN, URINE MANUAL NEGATIVE (NEGATIVE); BLOOD URINE MANUAL POSITIVE (NEGATIVE); GLUCOSE, URINE (UA) MANUAL NEGATIVE (NEGATIVE); KETONE, URINE MANUAL NEGATIVE (NEGATIVE); NITRITE, URINE MANUAL NEGATIVE (NEGATIVE); PROTEIN, URINE MANUAL NEGATIVE (NEGATIVE); UROBILINOGEN, URINE MANUAL NORMAL (NORMAL)
[2022-07-22 19:54] LABS: LEUKOCYTE ESTERASE, URINE MAN TRACE (NEGATIVE)
[2022-07-22 20:22] LABS: BACTERIA, URINE SMALL AMOUNT; RBC, URINE 40-50 /hpf (0-3)
[2022-07-22 20:23] LABS: HYALINE CAST, URINE NONE SEEN /lpf (0-1); SQUAMOUS EPITHELIAL CELL URINE MOD AMOUNT /hpf (SMALL AMT)
== END ==
LOC: M SMT 16:57
PROVIDERS: ATTEND Urology
DX: N12 Tubulo-interstitial nephritis, not specified as acute or chronic (principal)

== ENCOUNTER → 2022-08-12 | Outpatient (REF) ==
[2022-08-12 13:45] LABS: RSV AMPLIFICATION NEGATIVE (NEGATIVE)
== END ==
LOC: M LABSMTC 11:00
PROVIDERS: ATTEND Family Medicine
DX: Z11.59 Encounter for screening for other viral diseases (principal)

== ENCOUNTER → 2023-02-03 | Outpatient (REF) | payer BC ==
[2023-02-03 17:31] LABS: APPEARANCE, URINE CLEAR (CLEAR); BACTERIA, URINE AUTO NEGATIVE (NEGATIVE); BILIRUBIN, URINE AUTO NEGATIVE (NEGATIVE); BLOOD, URINE BLOOD 2+ (NEGATIVE); COLOR, URINE YELLOW (YELLOW); GLUCOSE, URINE (UA) AUTO 3+ mg/dL (NEGATIVE); KETONE, URINE AUTO NEGATIVE (NEGATIVE); LEUKOCYTE ESTERASE, URINE AUTO NEGATIVE (NEGATIVE); NITRITE, URINE AUTO NEGATIVE (NEGATIVE); PROTEIN, URINE AUTO NEGATIVE (NEGATIVE); RBC, URINE AUTO 1 /HPF (0-3); SPECIFIC GRAVITY URINE AUTO 1.023 (1.002-1.035); SQUAMOUS EPITHELIAL CELL UR AU 1 /HPF (0-6); UROBILINOGEN, URINE AUTO 0.2 mg/dL (0.0-2.0); WBC, URINE AUTO 1 /HPF (0-3)
== END ==
LOC: M LAB REF 16:52
PROVIDERS: ATTEND Physician Assistant Medical
DX: R30.0 Dysuria (principal)

== ENCOUNTER → 2023-04-14 | Outpatient (CLI) | payer BC ==
[2023-04-14 14:13] LABS: HEMOGLOBIN A1c 8.6 % (4.0-6.0)
[2023-04-14 14:16] LABS: ALBUMIN 3.7 G/DL (3.2-5.2); ALKALINE PHOSPHATASE 79 U/L (46-116); ALT/SGPT 55 U/L (7.0-40); AST/SGOT 20 U/L (<34); BILIRUBIN,TOTAL 0.3 MG/DL (0.3-1.2); BLOOD UREA NITROGEN 11 MG/DL (9-23); CALCIUM LEVEL 9.5 MG/DL (8.5-10.1); CARBON DIOXIDE LEVEL 28 MMOL/L (20-31); CHLORIDE LEVEL 103 MMOL/L (98-107); CHOLESTEROL LEVEL 186 MG/DL (<200); CHOLESTEROL RISK RATIO 3.33 (<5); CREATININE FOR GFR 0.57 MG/DL (0.55-1.30); GLOMERULAR FILTRATION RATE > 60.0 (>60); GLUCOSE, FASTING 140 MG/DL (60-100); HDL CHOLESTEROL 55.7 MG/DL (>40); LDL CHOLESTEROL 107.7 MG/DL (<100); NON-HDL-C 130.3 MG/DL; POTASSIUM SERUM 4.1 MMOL/L (3.5-5.1); SODIUM LEVEL 140 MMOL/L (136-145); TOTAL PROTEIN 6.9 G/DL (5.7-8.2); TRIGLYCERIDES LEVEL 113 MG/DL (<150)
== END ==
LOC: M WUC 09:12
PROVIDERS: ATTEND Physician Assistant Medical
DX: E78.00 Pure hypercholesterolemia, unspecified (principal); E11.9 Type 2 diabetes mellitus without complications

== ENCOUNTER → 2023-04-14 | Outpatient (CLI) | payer BC ==
[2023-04-14 14:20] LABS: PROLACTIN 8.83 NG/ML
[2023-04-14 14:21] LABS: FOLLICLE STIMULATING HORMONE 6.1 mIU/ML
[2023-04-15 17:09] LABS: TESTOSTERONE FREE (DIRECT) 6.6 pg/mL (0.0-4.2)
== END ==
LOC: M WUC 09:14
PROVIDERS: ATTEND Nurse Practitioner
DX: M25.50 Pain in unspecified joint (principal); E11.9 Type 2 diabetes mellitus without complications; Z68.43 Body mass index [BMI] 50.0-59.9, adult

== ENCOUNTER → 2023-06-30 | Outpatient (REF) | payer BC ==
[2023-06-30 16:58] LABS: BASO # 0.1 10^3/uL (0.0-0.2); BASO % 0.5 % (0.0-1.0); EOS # 0.2 10^3/uL (0.0-0.5); EOS % 1.7 % (0.0-3.0); HEMATOCRIT 43.9 % (36.0-47.0); HEMOGLOBIN 13.6 g/dl (12.0-15.5); LYMPH # 2.1 10^3/uL (1.5-5.0); LYMPH % 15.5 % (24.0-44.0); MEAN CORPUSCULAR HEMOGLOBIN 24.9 pg (27.0-33.0); MEAN CORPUSCULAR VOLUME 80.4 fl (80.0-96.0); MONO # 0.9 10^3/uL (0.0-0.8); MONO % 6.6 % (2.0-8.0); NEUTROPHILS # 9.9 10^3/uL (1.5-8.5); NEUTROPHILS % 74.8 % (36.0-66.0); PLATELET COUNT, AUTOMATED 394 10^3/uL (150-450); RED BLOOD COUNT 5.46 10^6/uL (4.00-5.40); WHITE BLOOD COUNT 13.3 10^3/uL (4.0-10.0)
== END ==
LOC: M LABWUC 16:12
PROVIDERS: ATTEND Physician Assistant
DX: R79.9 Abnormal finding of blood chemistry, unspecified (principal)

== ENCOUNTER → 2023-08-09 | Outpatient (CLI) | payer BC ==
[2023-08-09 12:30] LABS: HEMATOCRIT 44.9 % (36.0-47.0); HEMOGLOBIN 13.8 g/dl (12.0-15.5); MEAN CORPUSCULAR HEMOGLOBIN 24.6 pg (27.0-33.0); MEAN CORPUSCULAR HGB CONC 30.7 g/dl (32.0-36.5); PLATELET COUNT, AUTOMATED 394 10^3/uL (150-450); RED BLOOD COUNT 5.61 10^6/uL (4.00-5.40); WHITE BLOOD COUNT 15.6 10^3/uL (4.0-10.0)
[2023-08-09 12:38] LABS: HEMOGLOBIN A1c 6.3 % (4.0-6.0)
[2023-08-09 12:48] LABS: ALBUMIN 3.8 G/DL (3.2-5.2); ALKALINE PHOSPHATASE 74 U/L (46-116); ALT/SGPT 35 U/L (7.0-40); AST/SGOT 16 U/L (<34); BILIRUBIN,TOTAL 0.2 MG/DL (0.3-1.2); BLOOD UREA NITROGEN 14 MG/DL (9-23); CALCIUM LEVEL 9.5 MG/DL (8.5-10.1); CARBON DIOXIDE LEVEL 26 MMOL/L (20-31); CHLORIDE LEVEL 106 MMOL/L (98-107); CHOLESTEROL LEVEL 177 MG/DL (<200); CHOLESTEROL RISK RATIO 4.16 (<5); CREATININE FOR GFR 0.63 MG/DL (0.55-1.30); GLOMERULAR FILTRATION RATE > 60.0 (>60); GLUCOSE, FASTING 118 MG/DL (60-100); HDL CHOLESTEROL 42.5 MG/DL (>40); LDL CHOLESTEROL 111.3 MG/DL (<100); MAGNESIUM LEVEL 2.1 MG/DL (1.8-2.4); NON-HDL-C 134.5 MG/DL; POTASSIUM SERUM 4.4 MMOL/L (3.5-5.1); SODIUM LEVEL 137 MMOL/L (136-145); TRIGLYCERIDES LEVEL 116 MG/DL (<150)
[2023-08-09 12:49] LABS: FREE T4 1.31 NG/DL (0.89-1.76)
[2023-08-09 12:57] LABS: CREATININE, URINE 111.2 MG/DL; CREATININE,RANDOM URINE 111.2 MG/DL
[2023-08-09 12:58] LABS: MALB URINE SIEMENS < 3.0 MG/L; MAU/CREAT RATIO 2.6 MCG/MG (0.0-30.0)
== END ==
LOC: M WUC 10:12
PROVIDERS: ATTEND Physician Assistant Medical
DX: E11.9 Type 2 diabetes mellitus without complications (principal); R63.4 Abnormal weight loss; I10 Essential (primary) hypertension; E78.00 Pure hypercholesterolemia, unspecified; E83.42 Hypomagnesemia

== ENCOUNTER → 2023-09-01 | Outpatient (REF) | payer BC ==
[2023-09-01 19:40] LABS: HEMATOCRIT 42.9 % (36.0-47.0); HEMOGLOBIN 13.6 g/dl (12.0-15.5); MEAN CORPUSCULAR HEMOGLOBIN 25.2 pg (27.0-33.0); MEAN CORPUSCULAR HGB CONC 31.7 g/dl (32.0-36.5); MEAN CORPUSCULAR VOLUME 79.4 fl (80.0-96.0); PLATELET COUNT, AUTOMATED 413 10^3/uL (150-450); WHITE BLOOD COUNT 14.4 10^3/uL (4.0-10.0)
== END ==
LOC: M LAB REF 19:04
PROVIDERS: ATTEND Physician Assistant Medical
DX: D72.829 Elevated white blood cell count, unspecified (principal)

== ENCOUNTER → 2023-10-13 | Outpatient (CLI) | payer BC | LOC: M PLALAB 15:17 | PROVIDERS: ATTEND Urology | DX: N20.0 Calculus of kidney (principal) ==

== ENCOUNTER → 2024-06-12 | Outpatient (REF) ==
[~2024-06-12] MED LIST changes: +ONDA-282 PO; -ONDA4TAB6 PO
== END ==
LOC: M EMP 12:13
PROVIDERS: ATTEND Family Medicine
DX: Z11.52 Encounter for screening for COVID-19 (principal); Z20.828 Contact with and (suspected) exposure to other viral communicable diseases

== ENCOUNTER → 2024-06-12 | Outpatient (REF) | LOC: M EMP 12:15 | PROVIDERS: ATTEND Family Medicine | DX: Z11.52 Encounter for screening for COVID-19 (principal) ==

== ENCOUNTER → 2024-10-25 | Outpatient (CLI) | payer BC | LOC: M WUC 12:54 | PROVIDERS: ATTEND Urology | DX: N20.0 Calculus of kidney (principal) ==

== ENCOUNTER → 2025-05-14 | Outpatient (CLI) | payer BC ==
[~2025-05-14] MED LIST changes: -FLOM0.4C39 PO; +TAMS-18 PO
== END ==
LOC: M RAD 06:48
PROVIDERS: ATTEND Physician Assistant Medical
DX: M51.369 Other intervertebral disc degeneration, lumbar region without mention of lumbar back pain or lower extremity pain (principal)